=== PATIENT | male | born 1945 | race Caucasian/White ===

== ENCOUNTER → 2017-05-20 | Day surgery (SDC) | payer MEDICARE, OTHER ==
[~2017-05-20] MED LIST: ADVAIR 250-501 EAC1 INH; ALBUTEROL MININEB NEB; ALBUTEROL17 GM INH; ALDACTONE25 MG PO; ANUSOL SUPP1 SUPP PR; APRESOLINE PO; ASPIRIN EC81 M1 PO; ASPIRIN325 M1 PO; ASPIRIN81 M2 PO; ASPIRIN81 MG PO; AUGMENTIN PO; B-1100 MG PO; CALAZIME P113 GM OI1 TOP; CARDIZEM LA360 MG PO; CIPRO PO; COMBIVENT INH14.7 GM INH; DILTIAZEM 24HR360 M1 PO; DILTIAZEM HCL360 MG PO; DIOVAN HCT 160-1 TAB PO; DOXYCYCLINE PO; DOXYCYCLINE150 MG PO; ERYTHROCIN STE500 M1 PO; FLAGYL PO; FLOMAX0.4 M1 PO; FLOVENT DI50 MCG/DIS IH; FLOVENT DISKUS50 MCG; FOLIC ACID1 MG PO; HYDRALAZINE HCL25 MG PO; K-DUR20 ME1 PO; KCL PO; LASIX20 MG PO; LEVAQUIN PO; LEVAQUIN750 MG PO; LEVOTHROID125 MCG PO; LEVOTHYROXINE112 MCG PO; LEVOXYL100 MC1 PO; LEVOXYL125 MC1 PO; LIBRIUM PO; LIPITOR PO; LISINOPRIL10 MG PO; LOPRESSOR PO; LORTAB 7.5-5001 TAB PO; MAG-OX 400400 M1 PO; MAGNESIUM400 M1 PO; MEDROL4 MG/DOSE-; MEDROL4 MG/DOSE- PO; MELATONIN5 M1 PO; MEN'S ONE DAILY1 TA1 PO; METOPROLOL TAR25 MG PO; MULTI VITAMIN1 EACH PO; MULTIVITAMIN W-1 TAB PO; NEUTRA-PHOS1.25 GM PO; PANTOPRAZOLE SO40 MG PO; PREDNISONE PO; PRILOSEC40 MG PO; PRINIVIL10 MG PO; PROTONIX; PROTONIX PO; ST. JOSEPH ASPI81 M3 PO; SYMBICORT 160/4.6 GM IH; SYMBICORT INH; SYNTHROID PO; SYNTHROID0.1 MG PO; SYNTHROID125 PO; THIAMINE HCL100 MG PO; TOPROL XL PO; TOPROL XL50 MG PO; VITAMIN B-1100 M1 PO; ZITHROMAX PO; ZOFRAN ODT4 MG PO; ZOFRAN PO; ZYRTEC PO
--- NOTE | ~2017-05-20 | OR ---
Unit #: [id number] #: [id number] Patient: EAN ROUSE [id number] [address] [address] [id number] O MR#: [id number] NAME: EAN ROUSE. ROOM: Date of Procedure: 05/20/2017 Admission Date: 05/20/2017 Surgeon: Yury Fuentes M.D. : 1945 Attending Physician: Yury Fuentes M.D. Primary Care Physician: Raghav Oates Jr., M.D. OPERATIVE REPORT PREOPERATIVE DIAGNOSES Hematochezia. PROCEDURES PERFORMED Colonoscopy and polypectomy. POSTOPERATIVE DIAGNOSES 1. The patient has single sessile polyp in the mid descending colon. This was removed using snare polypectomy. 2. He had mild sigmoid and descending colon diverticulosis. 3. Rest of the examination up to cecum was normal. The quality of the prep was good. RECOMMENDATIONS Reassurance is in order. The results of polyp histology be complicated to the patient. He should have a repeat examination in 5 years. SEDATION USED MAC. DESCRIPTION OF PROCEDURE Following detailed explanation of the potential risks and complications of a colonoscopy, namely perforation, bleeding, and complications related to sedation, the patient was brought to GI lab and laid in the left lateral decubitus position. A digital rectal examination was performed, which was normal. Lubricated tip of the Olympus video colonoscope was inserted through the anus and advanced under direct vision. The scope was advanced past rectosigmoid into descending colon. Multiple medium-sized diverticula were noted in this area. The scope tip was then navigated all the way up to cecum with visualization of the ileocecal valve and the appendiceal orifice. Preparation was excellent with good visualization and photodocumentation was obtained. Successive segments of the colonic mucosa were examined upon withdrawal. A single sessile polyp in the mid descending colon. This was about 6 to 7 mm in size and was removed using snare polypectomy. No additional polyps were noted. Other than the left-sided diverticulosis, no additional abnormalities were found. The patient did not have any significant internal hemorrhoids. The scope was then withdrawn. The patient returned to the recovery area. He tolerated the procedure without any postprocedure complications. Dictated by... Unit #: [id number] #: [id number] Patient: EAN ROUSE M.D. AK/modl TD: 05/20/2017 08:43 JOB #: [id number] OPERATIVE REPORT Page 1 of 1 X Yury Fuentes MD PROCEDURE OPERATIVE NOTE
== END | disposition home or self-care (01) ==
LOC: COPS 06:13
DX: D12.4 Benign neoplasm of descending colon (principal); K57.30 Diverticulosis of large intestine without perforation or abscess without bleeding; I48.91 Unspecified atrial fibrillation; J44.9 Chronic obstructive pulmonary disease, unspecified; E89.0 Postprocedural hypothyroidism; F17.210 Nicotine dependence, cigarettes, uncomplicated; Z87.442 Personal history of urinary calculi; Z79.82 Long term (current) use of aspirin; Z79.51 Long term (current) use of inhaled steroids; Z79.899 Other long term (current) drug therapy; Z96.653 Presence of artificial knee joint, bilateral; Z98.41 Cataract extraction status, right eye; Z98.42 Cataract extraction status, left eye; Z90.49 Acquired absence of other specified parts of digestive tract; Z90.81 Acquired absence of spleen; Z98.890 Other specified postprocedural states
CPT/HCPCS: 88305